=== PATIENT | male | born 1980 | race Two or more races ===

== ENCOUNTER 2016-07-07 23:39 | Emergency (ER) | payer SELFPAY | END 2016-07-07 23:57 | disposition left against medical advice (07) | LOC: ED 23:39 | DX: Z53.21 Procedure and treatment not carried out due to patient leaving prior to being seen by health care provider (principal) ==

== ENCOUNTER 2016-07-08 14:57 | Inpatient (IN) | payer SELFPAY ==
[2016-07-08 16:04] LABS: ALL NEG? NO
[2016-07-08 16:10] LABS: MPV 12.1 fL (7.4-10.4)
[2016-07-08 16:12] LABS: LEUKOCYTES/URINE NEG (NEGATIVE); NITRITE/URINE NEG (NEGATIVE); RBC/URINE 0-2 (0-2); URINE OCCULT BLOOD NEG (NEG/TRACE); WBC/URINE 0-2 (0-2)
[2016-07-08 16:14] LABS: MDMA* NEG (NEGATIVE); METHAMPHETAMINES *POSITIVE* (NEGATIVE); OXYCODONE NEG (NEGATIVE)
[2016-07-08 16:49] LABS: SEG NEUTROPHIL 73 % (45-76); TOTAL CELL COUNT 100
[2016-07-08 17:19] LABS: BLOOD UREA NITROGEN 16 MG/DL (9-20); CALCIUM 8.9 MG/DL (8.4-10.2); CALCULATED OSMOLALITY 262 MOs/Kg (270-290); CHLORIDE 101 mEq/L (98-107); GLUCOSE 118 MG/DL (70-99); SODIUM LEVEL 135 mEq/L (137-146); TOTAL PROTEIN 8.4 G/DL (6.3-8.2)
[2016-07-08] MEDS ORDERED: NS 1,000 ML IV ONE (17:27)
[2016-07-08] MEDS ORDERED: HYDROmorphone 1 MG INJECTION IV ONE (17:27)
[2016-07-08] MEDS ORDERED: DIATRIZOATE MEGLMINE/SODIUM 30 ML BOTTLE PO ONE (17:27)
[2016-07-08] MEDS ORDERED: ONDANSETRON HCL 4 MG/2 ML VIAL IV ONE (17:27)
[2016-07-08] MEDS ORDERED: Pharmacy Review for Metformin - IV Contrast Given SCH ×2 (18:00)
--- NOTE | 2016-07-08 18:18 | EDPRACDOC ---
- General Information Chief Complaint: Abdominal Pain Stated Complaint: ABD PAIN Time Seen by Provider: 07/08/16 17:19 Information Source: Patient, Friend Mode Of Arrival: Car Home Medications: Home Medications Ibuprofen Tablet [Advil] 200 mg PO .ONCE 07/08/16 Allergies/Adverse Reactions: Allergies Allergy/AdvReac Type Severity Reaction Status Date / Time acetaminophen Allergy Rash-Genera Verified 07/08/16 17:41 [From Excedrin Migraine] lized aspirin Allergy Rash-Genera Verified 07/08/16 17:41 [From Excedrin Migraine] lized caffeine Allergy Rash-Genera Verified 07/08/16 17:41 [From Excedrin Migraine] lized - History of Present Illness Onset: 3 DAYS Pain Location: Reports: Epigastric Pain Context: Reports: Spontaneous Pain Severity: Mild Pain Quality: Reports: Aching Pain Radiation: Reports: No Radiation Modifying Factors: improves with: Nothing Associated Signs & Symptoms: Reports: Nausea, Vomiting Oral Intake: Decreased Urinary Output: Normal ED Past Medical History - History Reviewed Yes Nurses notes reviewed and agree except as marked - Patient Medical History Psychological History: Denies: Depression - Social Medical History Smoking Status: Heavy tobacco smoker (5 or more cigarettes/day or daily pipe/ cigar) EDM Review of Systems - Review of Systems ROS Negative Except as Marked: Yes All systems reviewed and were negative except as marked - Physical Exam Constitutional: Alert (Awake), No apparent distress Oriented to: Time, Person, Place Last recorded Vital Signs: Last Vital Signs Temp 98.7 F 07/08/16 20:41 Pulse 78 07/08/16 20:41 Resp 20 07/08/16 20:41 BP 139/72 07/08/16 20:41 Pulse Ox 96 07/08/16 20:41 Oxygen Pulse Oxygen Saturation 96 O2 Device Room Air Oxygen Flow Rate Fraction of Inspired Oxygen ( FIO2) - HEENT Head: Normal ( normocephalic) Eye Exam: Normal (PERRL, EOMI, Sclera white) Oropharynx: Normal (Pharynx:Moist without exudate,Gums-no swelling) ENT EAC: Normal TMJ: Normal Nose: No Symptoms Reported (septum midline) Neck: Normal (FROM, trachea at midline) - Respiratory/Cardiovascular Respiratory: Normal - CTA (BBS clear to auscultation without adventitious sounds ) Cardiovascular: Normal (RRR without murmur, gallop or rub) - GI Auscultation: Normal (NABS) Palpation: Normal (Soft,No rebound or guarding, non distended) Tenderness: Diffuse, RUQ, Epigastric Pérez's Sign: Negative - Musculoskeletal Back: Normal (Non-Tender) Extremities: Normal (Normal tone, Pulses 2+ No cyanosis or edema, FROM) - Integumentary Skin: Normal, Warm, Dry Lymphatics: Normal (no adenopathy) - Neurologic Memory Impaired: Normal Motor Function: Normal (Normal tone, Pulses 2+ No cyanosis or edema, FROM) Cranial Nerve: Normal (CN II-X11 intact sensation, strength 5/5) Cerebellar: Normal Mood Description: Normal Perception: Normal - Results 07/08/16 15:55 07/08/16 17:00 WBC 14.4 xk/uL (3.8-10.8) H 07/08/16 15:55 RBC 5.46 xM/uL (4.70-6.10) 07/08/16 15:55 Hgb 18.0 g/dL (14.0-18.0) 07/08/16 15:55 Hct 50.1 % (42-52) 07/08/16 15:55 MCV 92 fL (80-94) 07/08/16 15:55 MCH 32.9 pg (27-32) H 07/08/16 15:55 MCHC 35.9 g/dl (33-36) 07/08/16 15:55 RDW 13.5 % (11.5-14.5) 07/08/16 15:55 Plt Count 220 xk/uL (130-400) 07/08/16 15:55 MPV 12.1 fL (7.4-10.4) H 07/08/16 15:55 Neut % (Auto) Cancelled 07/08/16 15:55 Lymph % (Auto) Cancelled 07/08/16 15:55 Taylor % (Auto) Cancelled 07/08/16 15:55 Eos % (Auto) Cancelled 07/08/16 15:55 Baso % (Auto) Cancelled 07/08/16 15:55 Absolute Neuts (auto) Cancelled 07/08/16 15:55 Absolute Lymphs (auto) Cancelled 07/08/16 15:55 Seg Neuts % (Manual) 73 % (45-76) 07/08/16 15:55 Band Neutrophils % 5 % (0-5) 07/08/16 15:55 Lymphocytes % (Manual) 16 % (17-44) L 07/08/16 15:55 Monocytes % (Manual) 4 % (0-10) 07/08/16 15:55 Eosinophils % (Manual) 2 % (0-5) 07/08/16 15:55 Absolute Neutrophils 11.23 xk/uL (1.7-8.2) H 07/08/16 15:55 Absolute Lymphocytes 2.30 xk/uL (0.65-4.75) 07/08/16 15:55 Platelet Estimate Norm (NORMAL) 07/08/16 15:55 RBC Morphology 1+ stomatocytes 07/08/16 15:55 Sodium 135 mEq/L (137-146) L 07/08/16 17:00 Potassium 4.7 mEq/L (3.5-5.1) 07/08/16 17:00 Chloride 101 mEq/L (98-107) 07/08/16 17:00 Carbon Dioxide 19 mMOL/L (22-33) L 07/08/16 17:00 Anion Gap 20 mEq/L (8-16) H 07/08/16 17:00 BUN 16 MG/DL (9-20) 07/08/16 17:00 Creatinine 1.10 MG/DL (0.66-1.25) 07/08/16 17:00 Estimated GFR (MDRD) > 60 mL/min (>=60) 07/08/16 17:00 Glucose 118 MG/DL (70-99) H 07/08/16 17:00 Calculated Osmolality 262 MOs/Kg (270-290) L 07/08/16 17:00 Calcium 8.9 MG/DL (8.4-10.2) 07/08/16 17:00 Total Bilirubin 3.6 MG/DL (0.2-1.3) H 07/08/16 17:00 AST 211 IU/L (17-59) H 07/08/16 17:00 ALT 118 IU/L (21-72) H 07/08/16 17:00 Alkaline Phosphatase 117 IU/L (38-126) 07/08/16 17:00 Total Protein 8.4 G/DL (6.3-8.2) H 07/08/16 17:00 Albumin 4.2 G/DL (3.5-5.0) 07/08/16 17:00 Lipase 428 U/L (23-300) H 07/08/16 17:00 Urine Color Yellow 07/08/16 15:56 Urine Clarity Clear 07/08/16 15:56 Urine pH 6.0 (5.0-8.0) 07/08/16 15:56 Ur Specific [place] 1.030 (1.003-1.035) 07/08/16 15:56 Urine Protein 1+ (NEG/TRACE) H 07/08/16 15:56 Urine Glucose (UA) Neg (NEGATIVE) 07/08/16 15:56 Urine Ketones Neg (NEGATIVE) 07/08/16 15:56 Urine Occult Blood Neg (NEG/TRACE) 07/08/16 15:56 Urine Nitrite Neg (NEGATIVE) 07/08/16 15:56 Urine Bilirubin Neg (NEGATIVE) 07/08/16 15:56 Urine Urobilinogen <2.0 MG/DL (0-1) 07/08/16 15:56 Ur Leukocyte Esterase Neg (NEGATIVE) 07/08/16 15:56 Urine RBC 0-2 (0-2) 07/08/16 15:56 Urine WBC 0-2 (0-2) 07/08/16 15:56 Ur Epithelial Cells Occ 07/08/16 15:56 Urine Bacteria Few (NEG/FEW) 07/08/16 15:56 Urine Mucus Large (NEG/OCC) 07/08/16 15:56 Urine Opiates Screen *positive* (NEGATIVE) H 07/08/16 15:56 Ur Oxycodone Screen Neg (NEGATIVE) 07/08/16 15:56 Urine Methadone Screen Neg (NEGATIVE) 07/08/16 15:56 Ur Barbiturates Screen Neg (NEGATIVE) 07/08/16 15:56 Ur Tricyclics Screen Neg (NEGATIVE) 07/08/16 15:56 Ur Phencyclidine Scrn Neg (NEGATIVE) 07/08/16 15:56 Ur Amphetamines Screen Neg (NEGATIVE) 07/08/16 15:56 U Methamphetamines Scrn *positive* (NEGATIVE) H 07/08/16 15:56 Urine MDMA Screen Neg (NEGATIVE) 07/08/16 15:56 U Benzodiazepines Scrn Neg (NEGATIVE) 07/08/16 15:56 Urine Cocaine Screen *positive* (NEGATIVE) H 07/08/16 15:56 Ur THC Screen Neg (NEGATIVE) 07/08/16 15:56 Plasma/Serum Ethyl Alc 0.01 % (<0.01) H 07/08/16 15:55 Lab Results 07/08/16 07/08/16 07/08/16 17:00 15:56 15:56 WBC RBC Hgb Hct MCV MCH MCHC RDW Plt Count MPV Neut % (Auto) Lymph % (Auto) Taylor % (Auto) Eos % (Auto) Baso % (Auto) Absolute Neuts (auto) Absolute Lymphs (auto) Seg Neuts % (Manual) Band Neutrophils % Lymphocytes % (Manual) Monocytes % (Manual) Eosinophils % (Manual) Absolute Neutrophils Absolute Lymphocytes Platelet Estimate RBC Morphology Sodium 135 L Potassium 4.7 Chloride 101 Carbon Dioxide 19 L Anion Gap 20 H BUN 16 Creatinine 1.10 Estimated GFR (MDRD) > 60 Glucose 118 H Calculated Osmolality 262 L Calcium 8.9 Total Bilirubin 3.6 H AST 211 H ALT 118 H Alkaline Phosphatase 117 Total Protein 8.4 H Albumin 4.2 Lipase 428 H Urine Color Yellow Urine Clarity Clear Urine pH 6.0 Ur Specific [place] 1.030 Urine Protein 1+ H Urine Glucose (UA) Neg Urine Ketones Neg Urine Occult Blood Neg Urine Nitrite Neg Urine Bilirubin Neg Urine Urobilinogen <2.0 Ur Leukocyte Esterase Neg Urine RBC 0-2 Urine WBC 0-2 Ur Epithelial Cells Occ Urine Bacteria Few Urine Mucus Large Urine Opiates Screen *positive* H Ur Oxycodone Screen Neg Urine Methadone Screen Neg Ur Barbiturates Screen Neg Ur Tricyclics Screen Neg Ur Phencyclidine Scrn Neg Ur Amphetamines Screen Neg U Methamphetamines Scrn *positive* H Urine MDMA Screen Neg U Benzodiazepines Scrn Neg Urine Cocaine Screen *positive* H Ur THC Screen Neg Plasma/Serum Ethyl Alc 07/08/16 07/08/16 15:55 15:55 WBC 14.4 H RBC 5.46 Hgb 18.0 Hct 50.1 MCV 92 MCH 32.9 H MCHC 35.9 RDW 13.5 Plt Count 220 MPV 12.1 H Neut % (Auto) Cancelled Lymph % (Auto) Cancelled Taylor % (Auto) Cancelled Eos % (Auto) Cancelled Baso % (Auto) Cancelled Absolute Neuts (auto) Cancelled Absolute Lymphs (auto) Cancelled Seg Neuts % (Manual) 73 Band Neutrophils % 5 Lymphocytes % (Manual) 16 L Monocytes % (Manual) 4 Eosinophils % (Manual) 2 Absolute Neutrophils 11.23 H Absolute Lymphocytes 2.30 Platelet Estimate Norm RBC Morphology 1+ stomatocytes Sodium Potassium Chloride Carbon Dioxide Anion Gap BUN Creatinine Estimated GFR (MDRD) Glucose Calculated Osmolality Calcium Total Bilirubin AST ALT Alkaline Phosphatase Total Protein Albumin Lipase Urine Color Urine Clarity Urine pH Ur Specific [place] Urine Protein Urine Glucose (UA) Urine Ketones Urine Occult Blood Urine Nitrite Urine Bilirubin Urine Urobilinogen Ur Leukocyte Esterase Urine RBC Urine WBC Ur Epithelial Cells Urine Bacteria Urine Mucus Urine Opiates Screen Ur Oxycodone Screen Urine Methadone Screen Ur Barbiturates Screen Ur Tricyclics Screen Ur Phencyclidine Scrn Ur Amphetamines Screen U Methamphetamines Scrn Urine MDMA Screen U Benzodiazepines Scrn Urine Cocaine Screen Ur THC Screen Plasma/Serum Ethyl Alc 0.01 H - Additional Information UNABLE TO OBTAIN GB US AT [facility]. CONTACTED HOSPITALIST TO ADMIT - Departure Yes I personally saw and evaluated the patient. Disposition: Admit IP To This Hospital Condition: Good Final Diagnosis: Abdominal pain, DUODENITIS, ELEVATED LFT Decision to Admit Time: 20:49 (IKRAM) Decision to admit date: 07/08/16 Decision to admit: from ED
--- NOTE | 2016-07-08 20:41 | DIRPT ---
CLINICAL DATA: Epigastric pain. Nausea and vomiting for 4 days. EXAM: CT ABDOMEN AND PELVIS WITH CONTRAST TECHNIQUE: Multidetector CT imaging of the abdomen and pelvis was performed using the standard protocol following bolus administration of intravenous contrast. CONTRAST: 100 cc Isovue 370 COMPARISON: None. FINDINGS: Lower chest: Trace right pleural fluid Hepatobiliary: Diffuse hepatic steatosis. No gallbladder wall thickening observed. Pancreas: No parenchymal abnormality of the pancreas is identified. Spleen: Unremarkable Adrenals/Urinary Tract: Partially duplicated right renal collecting system. Stomach/Bowel: There is apparent wall thickening and abnormal hypointensity in the anterior wall of the transverse duodenum with extensive fluid signal tracking around the transverse duodenum in the retroperitoneum. This edema extends up to the fourth part of the duodenum and also tracks down adjacent to the right inferior hepatic margin and in the right paracolic gutter. There is some wall thickening at the hepatic flexure the colon, along with some scattered diverticula, raising that as a possible alternative source of the fluid, but the duodenum seems to be the epicenter. Part of the edema extends below the pancreatic head and accordingly pancreatitis might be a possibility, but the pancreas is not observably the epicenter. There is some scattered air-fluid levels in nondilated left-sided loops of small bowel. The appendix is normal. Terminal ileum unremarkable. Vascular/Lymphatic: Unremarkable Reproductive: Unremarkable Other: No supplemental non-categorized findings. Musculoskeletal: Several small benign bone islands in the pelvis and proximal femurs. IMPRESSION: 1. Extensive upper abdominal edema appears to have its epicenter around the transverse duodenum, which demonstrates some abnormal hypoenhancement in its anterior wall along with some generalized wall thickening. This abnormal confluent fluid density tracks down along the retroperitoneum and along the right paracolic gutter. There are scattered diverticula of the ascending colon making ascending colon diverticulosis as a possible alternative to duodenitis/duodenal ulcer, but the epicenter of the process appears to be more around the duodenum than the colon. Possibilities include Crohn's disease affecting the duodenum, or an unusual manifestation of duodenitis or duodenal injury. 2. Hepatic steatosis. 3. Part of the fluid tracks adjacent to the pancreas. Although I doubt that pancreatitis is the cause, it may be prudent to check a lipase level. Electronically Signed By: Oscar Larson M.D. On: 07/08/2016 20:38
[2016-07-08] MEDS ORDERED: PANTOPRAZOLE 40 MG VIAL IV ONE (21:28)
[2016-07-08] MEDS ORDERED: ONDANSETRON HCL 4 MG/2 ML VIAL IV PRN (21:29)
[2016-07-08] MEDS ORDERED: LORAZEPAM 2 MG/ML VIAL IV PRN ×3 (21:32)
[2016-07-08] MEDS ORDERED: LORAZEPAM 1 MG TAB PO PRN ×3 (21:32)
--- NOTE | 2016-07-08 21:36 | HISTPHYS ---
- Chief Complaint Abdominal pain - History of Present Illness This is a 36-year-old [place]an-speaking male who is being admitted to the hospital due to pancreatitis and GI bleed. The patient tells me that he started to develop abdominal pain about a week ago, and vomited coffee-grounds 4 days ago. Since that day, he has had continued abdominal pain which is epigastric but does not radiate. It is dull and achy, he has also had associated diarrhea. When he 1st threw up, he had some coffee-grounds, but since then has just been bilious without any evidence of coffee-grounds or blood. He has also been having diarrhea on a daily basis, says that 3 days ago he saw some blood in the stool, but since then it has just been dark in color. With no bright red blood seen. He admits to heavy drinking, his last drink was 2 days ago. No since it fevers, or back pain. No rashes on the skin. No chills. He had similar abdominal pain a couple months ago, but resolved after about 24 hours on its own without any intervention. He has never had any GI bleeding or blood in the stool or vomitus before, he has never had EGD or colonoscopy. - Medical History Psychological History: Denies: Depression - Medictions/Allergies Allergies acetaminophen [From Excedrin Migraine] Allergy (Verified 07/08/16 17:41) Rash-Generalized aspirin [From Excedrin Migraine] Allergy (Verified 07/08/16 17:41) Rash-Generalized caffeine [From Excedrin Migraine] Allergy (Verified 07/08/16 17:41) Rash-Generalized Home Medications Ibuprofen Tablet [Advil] 200 mg PO .ONCE 07/08/16 - Social History Smoking Status: Heavy tobacco smoker (5 or more cigarettes/day or daily pipe/ cigar) - Review of Systems Yes All systems reviewed and were negative except as marked (And as mentioned in the history of present illness above.) - Physical Exam Vital Signs: Initial Vitals Temperature 99.0 F 07/08/16 15:49 Pulse Rate 72 07/08/16 15:49 Respiratory Rate 18 07/08/16 15:49 Blood Pressure 143/84 07/08/16 15:49 Pulse Oxygen Saturation 97 07/08/16 15:49 Constitutional: Distress Oriented to: Time, Person, Place Exam: Healthy-appearing gentleman appearing stated age writhing in pain in the emergency department. - HEENT Head: Normal (normocephalic,atraumatic, trachea midline) Eye: Normal (EOMI, Sclera white) Oropharynx: Normal (moist) Nose: No Symptoms Reported (without discharge or bleeding) Respiratory: Normal - CTA (Clear to auscultation bilaterally, no wheezing,rales or rhonchi. No use of accessory muscles) Cardiovascular: Normal (RRR, no murmurs, rubs or gallops) - GI Palpation: Normal (soft, non distended and nontender) GI Addtional Findings: Tender to palpation. No abdominal ascites, fluid wave. Normal bowel tones. - Musculoskeletal Extremities: Normal (normal tone, no cyanosis or edema) - Focused CV Perfusion Exam Vital Signs: Last Vital Signs Temp 98.7 F 07/08/16 20:41 Pulse 75 07/08/16 21:13 Resp 20 07/08/16 21:13 BP 133/75 07/08/16 21:13 Pulse Ox 97 07/08/16 21:13 - Lab Results Laboratory Tests 07/08/16 07/08/16 15:55 17:00 WBC 14.4 H Hgb 18.0 Plt Count 220 Sodium 135 L Potassium 4.7 BUN 16 Creatinine 1.10 - Diagnostic Findings CT of the abdomen and pelvis: 1. Extensive upper abdominal edema appears to have its epicenter around the transverse duodenum, which demonstrates some abnormal hypoenhancement in its anterior wall along with some generalized wall thickening. This abnormal confluent fluid density tracks down along the retroperitoneum and along the right paracolic gutter. There are scattered diverticula of the ascending colon making ascending colon diverticulosis as a possible alternative to duodenitis/duodenal ulcer, but the epicenter of the process appears to be more around the duodenum than the colon. Possibilities include Crohn's disease affecting the duodenum, or an unusual manifestation of duodenitis or duodenal injury. 2. Hepatic steatosis. 3. Part of the fluid tracks adjacent to the pancreas. Although I doubt that pancreatitis is the cause, it may be prudent to check a lipase level. - Assessment (1) Drug abuse F19.10 - OTHER PSYCHOACTIVE SUBSTANCE ABUSE, UNCOMPLICATED Acute Noted opiates, methamphetamines cocaine on urine drug screen tonight. (2) ETOH abuse F10.10 - ALCOHOL ABUSE, UNCOMPLICATED Acute Patient and his family admits that he is a daily heavy drinker. I strongly advised to quit alcohol, he says that he will quit completely. Given his history, the fact that his last drink was 2 nights ago, he is certainly at high risk for alcohol withdrawal. As such , I have ordered CIWA checks and Ativan per the detox protocol. Also been antibiotic has been ordered. (3) Pancreatitis K85.90 - ACUTE PANCREATITIS WITHOUT NECROSIS OR INFECTION, UNSP Acute Patient is pancreatitis, likely related to heavy alcohol abuse. Keep strictly NPO, copious IV fluids. Control with IV morphine p.r.n.. (4) Duodenitis K29.80 - DUODENITIS WITHOUT BLEEDING Acute Significant duodenal inflammation and some associated fluid seen on CT scan of the abdomen tonight. Possibly infectious duodenitis or related to duodenal ulceration. My suspicion is for duodenal ulceration given his history of dark tarry stools, as well as heavy drinking. Infectious duodenitis is a possibility, as such will start on empiric Levaquin ill fascial, consider GI consultation in the morning for possible endoscopy once he is stabilized. He is currently not anemic, but will keep an eye on the blood counts on a daily basis, or check blood count stat in case of any further bright red blood in emesis or stool. (5) GIB (gastrointestinal bleeding) K92.2 - GASTROINTESTINAL HEMORRHAGE, UNSPECIFIED Acute Currently not anemic , but he does give a history of recent dark tarry stools and coffee-ground emesis, with some bright red blood seen at earlier on as well. As such, will start PPI therapy IV twice daily. Consider GI consultation for possible endoscopy. He has never had EGD or colonoscopy in the past. (6) Abdominal pain R10.9 - UNSPECIFIED ABDOMINAL PAIN Acute - Plan 49
[2016-07-08] MEDS ORDERED: PANTOPRAZOLE 40 MG VIAL IV SCH (22:00)
[2016-07-08] MEDS ORDERED: LORAZEPAM 1 MG TAB PO SCH ×2 (22:00)
[2016-07-08] MEDS ORDERED: Alcohol Withdrawal Scale Orders XX SCH (22:00)
[2016-07-08] MEDS: FOLIC ACID 1 MG, THIAMINE 100 MG, VITAMINS, MULTIPLE 10 ML in NS 1,000 ML IV SCH ×4 (22:18)
[2016-07-08] MEDS: MORPHINE 2 MG/ML INJECTION IV PRN (22:18)
[2016-07-08] MEDS: NS 1,000 ML IV SCH (22:29)
[2016-07-08] MEDS: Metronidazole 500 mg/100 ml 500 MG/100 ML RTU IV SCH (23:42)
[2016-07-09] MEDS: MORPHINE 2 MG/ML INJECTION IV PRN ×4 (01:39→17:34)
[2016-07-09] MEDS: Levofloxacin 500 mg/100 ml D5W 500 MG/100 ML RTU IV SCH (01:40)
[2016-07-09] MEDS: LORAZEPAM 2 MG/ML VIAL IV SCH ×3 (06:18→17:30)
[2016-07-09 06:21] LABS: MPV 10.6 fL (7.4-10.4)
[2016-07-09] MEDS: Metronidazole 500 mg/100 ml 500 MG/100 ML RTU IV SCH ×3 (06:21→21:10)
[2016-07-09 06:42] LABS: BLOOD UREA NITROGEN 11 MG/DL (9-20); CALCIUM 8.4 MG/DL (8.4-10.2); CALCULATED OSMOLALITY 261 MOs/Kg (270-290); CHLORIDE 103 mEq/L (98-107); GLUCOSE 97 MG/DL (70-99); SODIUM LEVEL 136 mEq/L (137-146); TOTAL PROTEIN 6.7 G/DL (6.3-8.2)
[2016-07-09] MEDS: NS 1,000 ML IV SCH ×3 (09:27→21:10)
[2016-07-09] MEDS: PANTOPRAZOLE 40 MG VIAL IV SCH ×2 (11:06→21:11)
[2016-07-09] MEDS ORDERED: Vaccine Screening Complete SCH (13:00)
--- NOTE | 2016-07-09 13:46 | GENMEDPROG ---
Chief Complaint: pancreatitis, ETOH abuse, GI bleed, melena, N&V, epigastric abdominal pain Subjective Note: Drinks 8-12 beers a day, more on the week-end; smokes 1ppd cigarettes also. Has had dyspepsia for several weeks, Really bad since [place]. Notes Reviewed: Yes Events from last night noted and discussed with Clinical Staff Current Medication List: Reviewed Currently: Reports: Tobacco Use/Hx, Alcohol Hx, Reflux Sx, Abdominal Pain. Denies: Diarrhea, Nausea and Vomiting - Physical Examination Vital Signs and I&O: Last Vital Signs Temp 99.6 F 07/09/16 10:45 Pulse 96 07/09/16 10:45 Resp 16 07/09/16 10:45 BP 129/74 07/09/16 10:45 Pulse Ox 96 07/09/16 10:45 Oxygen Pulse Oxygen Saturation 96 O2 Device Room Air Oxygen Flow Rate Fraction of Inspired Oxygen ( FIO2) Intake & Output 07/06/16 07/07/16 07/08/16 07/09/16 23:59 23:59 23:59 23:59 Intake Total 1000 797 Output Total 725 Balance 1000 72 Patient's weight 83.489 kg 83.716 kg General: Alert, Oriented x3, Mild distress HEENT: PERRLA, EOMI, Anicteric Sclera, Mucous membr. moist/pink Neck: Non-tender, Full range of motion, Normal Trachea alignment, Normal inspection, No Masses palpable, No Thyromegaly palpable. negative: JVD Lymphatics: Normal Respiratory: Normal - CTA (Clear to auscultation bilaterally, no wheezing,rales or rhonchi. No use of accessory muscles) Cardiovascular: Regular rate and rhythm, Normal S1, Normal S2 GI: Soft, No masses, Tenderness (mild direct tenderness over epigastric area), Guarding. negative: Normal bowel sounds (dminished) Extremities/Musculoskeletal: Normal pulses, FROM. negative: Edema Skin: Warm,Dry and Intact, No rashes, No breakdown Neurological: Normal speech, Strength at 5/5 X4 ext, Normal tone, Cranial nerves 3-12 NL Psych/Mental Status: Appropriate, Normal Affect, Cooperative Lab/DI/Studies Reviewed: Laboratory Tests 07/09/16 07/09/16 05:35 05:35 WBC 16.5 H Hgb 15.9 D Hct 45.3 MCV 91 MCH 31.7 Plt Count 123 L Sodium 136 L Potassium 3.7 Chloride 103 Carbon Dioxide 21 L Anion Gap 16 BUN 11 Creatinine 0.90 Estimated GFR (MDRD) > 60 Glucose 97 Calculated Osmolality 261 L Calcium 8.4 Corrected Calcium 9.0 Total Bilirubin 2.3 H AST 99 H ALT 97 H Alkaline Phosphatase 99 Total Protein 6.7 Albumin 3.4 L - Assessment (1) Pancreatitis Acute K85.90 - ACUTE PANCREATITIS WITHOUT NECROSIS OR INFECTION, UNSP Qualifiers: Chronicity: acute Pancreatitis type: alcohol induced Acute pancreatitis complication: no infection or necrosis Qualified Code(s): K85.20 - Alcohol induced acute pancreatitis without necrosis or infection Comment/Plan: Patient has pancreatitis, related to heavy alcohol abuse. Keep strictly NPO, copious IV fluids. Control with IV morphine p.r.n.. (2) ETOH abuse Acute F10.10 - ALCOHOL ABUSE, UNCOMPLICATED Comment/Plan: Patient and his family admits that he is a daily heavy drinker. I strongly advised to quit alcohol, he says that he will quit completely. Given his history, the fact that his last drink was 3 nights ago, he is certainly at high risk for alcohol withdrawal. As such, I have ordered CIWA checks and Ativan per the detox protocol. Also an antibiotic has been ordered. (3) Abdominal pain Acute R10.9 - UNSPECIFIED ABDOMINAL PAIN Comment/Plan: Related to his pancreatitis and possibly some alcoholic gastritis. Patient admits to having blood in stools for 2-3 weeks. (4) GIB (gastrointestinal bleeding) Acute K92.2 - GASTROINTESTINAL HEMORRHAGE, UNSPECIFIED Qualifiers: GI bleed type/associated pathology: unspecified gastrointestinal hemorrhage type Qualified Code(s): K92.2 - Gastrointestinal hemorrhage, unspecified Comment/Plan: Currently not anemic, but he does give a history of recent dark tarry stools and coffee-ground emesis, with some bright red blood reported earlier on as well. As such, will start PPI therapy IV twice daily. Consider GI consultation for possible endoscopy. He has never had EGD or colonoscopy in the past. (5) Drug abuse Acute F19.10 - OTHER PSYCHOACTIVE SUBSTANCE ABUSE, UNCOMPLICATED Comment/ Plan: Noted opiates, methamphetamines, & cocaine on urine drug screen on admission.
[2016-07-09] MEDS: FOLIC ACID 1 MG, THIAMINE 100 MG, VITAMINS, MULTIPLE 10 ML in NS 1,000 ML IV SCH ×4 (21:10)
[2016-07-10] MEDS ORDERED: LORAZEPAM 1 MG TAB PO SCH
[2016-07-10] MEDS: LORAZEPAM 2 MG/ML VIAL IV SCH ×4 (01:20→17:15)
[2016-07-10] MEDS: Levofloxacin 500 mg/100 ml D5W 500 MG/100 ML RTU IV SCH (01:20)
[2016-07-10] MEDS: MORPHINE 2 MG/ML INJECTION IV PRN ×4 (04:33→22:58)
[2016-07-10] MEDS: Metronidazole 500 mg/100 ml 500 MG/100 ML RTU IV SCH ×3 (06:00→22:38)
[2016-07-10 07:13] LABS: MPV 10.8 fL (7.4-10.4)
[2016-07-10 07:46] LABS: BLOOD UREA NITROGEN 6 MG/DL (9-20); CALCIUM 8.2 MG/DL (8.4-10.2); CALCULATED OSMOLALITY 259 MOs/Kg (270-290); CHLORIDE 104 mEq/L (98-107); GLUCOSE 74 MG/DL (70-99); SODIUM LEVEL 136 mEq/L (137-146)
[2016-07-10] MEDS: NS 1,000 ML IV SCH ×3 (08:00→22:39)
[2016-07-10] MEDS: PANTOPRAZOLE 40 MG VIAL IV SCH ×2 (09:51→22:40)
--- NOTE | 2016-07-10 15:36 | PCM.CONSGI ---
Consult Date: 07/10/16 Consult Requesting Physician: Monica Sol Consult Reason: Abdominal Pain - History of Present Illness 36-year-old very pleasant male who has been drinking alcohol and using cocaine over the last 4-5 years had sudden onset of abdominal pain on Reji. This got progressively worse. He did have some nausea and vomiting. According to the patient he also had hematemesis with coffee-ground emesis. His abdominal pain got progressively worse. He came into the emergency room where a CT scan of the abdomen and pelvis was performed which showed significant inflammation surrounding the duodenum. There was some inflammation around the pancreatic head as well. Initially her lipase was mildly elevated. His lipase is currently normal. He is allergic to aspirin. According to the history and physical-he has been using ibuprofen. When I asked him directly, he did tell me that he has not used any ibuprofen recently. He did have fever and chills over the last 24 hours. His white cell count has been progressively increasing. - Past Medical History Cardiac History: Reports: No Significant History Respiratory History: Reports: No Significant History Psychological History: Denies: Depression - Surgical History Past Surgical History: Reports: No Significant History - Allergies Allergies acetaminophen [From Excedrin Migraine] Allergy (Verified 07/08/16 17:41) Rash-Generalized aspirin [From Excedrin Migraine] Allergy (Verified 07/08/16 17:41) Rash-Generalized caffeine [From Excedrin Migraine] Allergy (Verified 07/08/16 17:41) Rash-Generalized - Medications Home Medications Ibuprofen Tablet [Advil] 200 mg PO .ONCE 07/08/16 - Social History Smoking Status: Heavy tobacco smoker (5 or more cigarettes/day or daily pipe/ cigar) Social History: Reports: Alcohol Use (12-24 beers per day), Cocaine Use (Every Friday over the last 4-5 years). Denies: Marijuana Use - Review of Systems Constitutional: Chills, Fever, Other (No night sweats.). negative: Weight loss (Recent) Mouth: negative: Pain Cardiovascular: negative: Chest Pain, Orthopnea, PND Gastrointestinal: Other (No jaundice, dark urine or pale stools.) Genitourinary: Other (Denies polyuria.). negative: Dysuria Neurological: Other (Denies loss of consciousness.). negative: Seizure Allergic/Immunologic: negative: Hives, Itching Hematologic: negative: Easy Bruising - Exam Vital Signs: Temperature: 100 F (07/10/16 13:53) HR: 104 (07/10/16 13:53) RR: 20 (07/10/16 13:53) BP: 106/59 (07/10/16 13:53) Pulse Ox: 96 (07/10/16 13:53) General: Alert, Oriented x3, Cooperative, No acute distress HEENT: Normal, Other (No Jaundice). negative: Pallor Cardiovascular: Normal S1, Normal S2, Other (No S3 or S4.). negative: No murmurs Gastrointestinal: Soft, Bowel Sounds (normal), Tender, Guarding, Other (No ascites. Bowel sounds are absent). negative: Rigid, Hepatosplenomegaly Extremities: Normal pulses. negative: Swelling, Edema Skin: Warm,Dry and Intact Neurological: Normal speech, Other (No focal neurologic deficits.) Psych/Mental Status: Normal Affect, Cooperative - Labs Result Diagrams: 07/10/16 06:45 07/10/16 06:45 Laboratory Tests 07/08/16 07/08/16 07/08/16 15:55 15:55 15:56 WBC 14.4 H Hgb 18.0 Hct MCV 92 Plt Count 220 Sodium Total Bilirubin AST ALT Alkaline Phosphatase Total Protein Lipase Urine Opiates Screen *positive* H U Methamphetamines Scrn *positive* H Urine Cocaine Screen *positive* H Plasma/Serum Ethyl Alc 0.01 H 07/08/16 07/09/16 07/10/16 17:00 05:35 06:45 WBC Hgb Hct MCV Plt Count Sodium 135 L 136 L 136 L Total Bilirubin 3.6 H 2.3 H AST 211 H 99 H ALT 118 H 97 H Alkaline Phosphatase 117 99 Total Protein 8.4 H 6.7 Lipase 428 H 110 Urine Opiates Screen U Methamphetamines Scrn Urine Cocaine Screen Plasma/Serum Ethyl Alc 07/10/16 06:45 WBC 17.8 H Hgb 14.6 Hct 42.5 MCV 91 Plt Count 116 L Sodium Total Bilirubin AST ALT Alkaline Phosphatase Total Protein Lipase Urine Opiates Screen U Methamphetamines Scrn Urine Cocaine Screen Plasma/Serum Ethyl Alc Exam(s): [id number] CT/CT ABD-PELV W/IV CM CLINICAL DATA: Epigastric pain. Nausea and vomiting for 4 days. EXAM: CT ABDOMEN AND PELVIS WITH CONTRAST TECHNIQUE: Multidetector CT imaging of the abdomen and pelvis was performed using the standard protocol following bolus administration of intravenous contrast. CONTRAST: 100 cc Isovue 370 COMPARISON: None. FINDINGS: Lower chest: Trace right pleural fluid Hepatobiliary: Diffuse hepatic steatosis. No gallbladder wall thickening observed. Pancreas: No parenchymal abnormality of the pancreas is identified. Spleen: Unremarkable Adrenals/Urinary Tract: Partially duplicated right renal collecting system. Stomach/Bowel: There is apparent wall thickening and abnormal hypointensity in the anterior wall of the transverse duodenum with extensive fluid signal tracking around the transverse duodenum in the retroperitoneum. This edema extends up to the fourth part of the duodenum and also tracks down adjacent to the right inferior hepatic margin and in the right paracolic gutter. There is some wall thickening at the hepatic flexure the colon, along with some scattered diverticula, raising that as a possible alternative source of the fluid, but the duodenum seems to be the epicenter. Part of the edema extends below the pancreatic head and accordingly pancreatitis might be a possibility, but the pancreas is not observably the epicenter. There is some scattered air-fluid levels in nondilated left-sided loops of small bowel. The appendix is normal. Terminal ileum unremarkable. Vascular/Lymphatic: Unremarkable Reproductive: Unremarkable Other: No supplemental non-categorized findings. Musculoskeletal: Several small benign bone islands in the pelvis and proximal femurs. IMPRESSION: 1. Extensive upper abdominal edema appears to have its epicenter around the transverse duodenum, which demonstrates some abnormal hypoenhancement in its anterior wall along with some generalized wall thickening. This abnormal confluent fluid density tracks down along the retroperitoneum and along the right paracolic gutter. There are scattered diverticula of the ascending colon making ascending colon diverticulosis as a possible alternative to duodenitis/duodenal ulcer, but the epicenter of the process appears to be more around the duodenum than the colon. Possibilities include Crohn's disease affecting the duodenum, or an unusual manifestation of duodenitis or duodenal injury. 2. Hepatic steatosis. 3. Part of the fluid tracks adjacent to the pancreas. Although I doubt that pancreatitis is the cause, it may be prudent to check a lipase level. - Assessment and Plan (1) Abdominal pain Acute R10.9 - UNSPECIFIED ABDOMINAL PAIN Comment: In a patient with history of cocaine, alcohol use. Initially it was thought to be pancreatitis. However, his lipase was within normal limits currently. He could have perforated duodenal ulcer in the 2nd portion or 3rd portion of duodenum. There is no free air. (2) Drug abuse Acute F19.10 - OTHER PSYCHOACTIVE SUBSTANCE ABUSE, UNCOMPLICATED (3) Duodenitis Acute K29.80 - DUODENITIS WITHOUT BLEEDING (4) ETOH abuse Acute F10.10 - ALCOHOL ABUSE, UNCOMPLICATED (5) Pancreatitis Acute K85.90 - ACUTE PANCREATITIS WITHOUT NECROSIS OR INFECTION, UNSP acute alcohol induced no infection or necrosis K85.20 - Alcohol induced acute pancreatitis without necrosis or infection Recommendations: 1. IV Protonix as a continuous drip. 2. Agree with broad-spectrum antibiotics 3. Recheck x-ray KUB in a.m. 4. Aggressive IV hydration, pain control. 5. I believe it will be worthwhile to get surgical consultation as well. 6. He has assured me that he will stop drinking alcohol and stop using cocaine.
--- NOTE | 2016-07-10 19:47 | GENMEDPROG ---
Chief Complaint: ABD PAIN, GI BLEED, ETOH ABUSE, PANCREATITIS Subjective Note: still having a lot of pain and nausea, scant bowel sounds Notes Reviewed: Yes Events from last night noted and discussed with Clinical Staff Current Medication List: Reviewed Currently: Reports: Tobacco Use/Hx, Alcohol Hx, Reflux Sx, Abdominal Pain. Denies: Diarrhea, Nausea and Vomiting - Physical Examination Vital Signs and I&O: Last Vital Signs Temp 99.5 F 07/10/16 16:04 Pulse 100 07/10/16 16:04 Resp 20 07/10/16 16:04 BP 134/66 07/10/16 16:04 Pulse Ox 97 07/10/16 16:04 Oxygen Pulse Oxygen Saturation 97 O2 Device Room Air Oxygen Flow Rate Fraction of Inspired Oxygen ( FIO2) Intake & Output 07/07/16 07/08/16 07/09/16 07/10/16 23:59 23:59 23:59 23:59 Intake Total 1000 2908 3097 Output Total 1375 2000 Balance 1000 1533 1097 Patient's weight 83.489 kg 83.716 kg 82.696 kg General: Alert, Oriented x3, Cooperative, No acute distress HEENT: Normal, PERRLA, EOMI, Anicteric Sclera, Pallor Neck: Full range of motion, Normal Trachea alignment, Normal inspection, No Masses palpable Lymphatics: Normal Respiratory: Normal - CTA Cardiovascular: Regular rate and rhythm, Normal S1, Normal S2 GI: Tenderness (diffuse), Rebound, Guarding. negative: Normal bowel sounds ( but still presentdiminished,) Extremities/Musculoskeletal: Normal pulses, FROM. negative: Swelling, Edema Skin: Warm,Dry and Intact Neurological: Normal speech, Strength at 5/5 X4 ext, Normal tone, Cranial nerves 3-12 NL Psych/Mental Status: Normal Affect, Cooperative Lab/DI/Studies Reviewed: Laboratory Tests 07/10/16 07/10/16 06:45 06:45 WBC 17.8 H Hgb 14.6 Hct 42.5 Plt Count 116 L Sodium 136 L Potassium 3.6 Chloride 104 Carbon Dioxide 21 L Anion Gap 15 BUN 6 L Creatinine 0.90 Estimated GFR (MDRD) > 60 Glucose 74 Calculated Osmolality 259 L Calcium 8.2 L Laboratory Tests 07/10/16 06:45 Lipase 110 - Assessment (1) Pancreatitis Acute K85.90 - ACUTE PANCREATITIS WITHOUT NECROSIS OR INFECTION, UNSP Qualifiers: Chronicity: acute Pancreatitis type: alcohol induced Acute pancreatitis complication: no infection or necrosis Qualified Code(s): K85.20 - Alcohol induced acute pancreatitis without necrosis or infection Comment/Plan: Pancreatitis resolving, but abdominal pain persists: probably gastritis related to heavy alcohol abuse. Keep strictly NPO, copious IV fluids. Control with IV morphine p.r.n.. (2) ETOH abuse Acute F10.10 - ALCOHOL ABUSE, UNCOMPLICATED Comment/Plan: Patient and his family admits that he is a daily heavy drinker. I strongly advised to quit alcohol, he says that he will quit completely. Given his history, the fact that his last drink was 3 nights ago, he is certainly at high risk for alcohol withdrawal. As such, I have ordered CIWA checks and Ativan per the detox protocol. Also an antibiotic has been ordered. (3) Abdominal pain Acute R10.9 - UNSPECIFIED ABDOMINAL PAIN Comment/Plan: possibly some alcoholic gastritis. Patient admits to having blood in stools for 2-3 weeks. Reports vomiting blood over the past weekend, up to 15 times. (4) GIB (gastrointestinal bleeding) Acute K92.2 - GASTROINTESTINAL HEMORRHAGE, UNSPECIFIED Qualifiers: GI bleed type/associated pathology: unspecified gastrointestinal hemorrhage type Qualified Code(s): K92.2 - Gastrointestinal hemorrhage, unspecified Comment/Plan: Currently not anemic, but he does give a history of recent dark tarry stools and coffee-ground emesis, with some bright red blood reported earlier on as well. As such, will start PPI therapy IV twice daily. GI consultation w/ Dr. Alanis for possible endoscopy. He has never had EGD or colonoscopy in the past. Also consider surgical evaluation due to guarding and possible perforated duodenal ulcer. (5) Drug abuse Acute F19.10 - OTHER PSYCHOACTIVE SUBSTANCE ABUSE, UNCOMPLICATED Comment/ Plan: Noted opiates, methamphetamines, & cocaine on urine drug screen on admission. Case Care Discussed with: Patient, Consultants, Nursing Staff Education/Counseling Given To: Patient, Family Member Education/Counseling Given Regarding: Diagnosis, Treatment, Prognosis Total Time: 35 min
[2016-07-10] MEDS: FOLIC ACID 1 MG, THIAMINE 100 MG, VITAMINS, MULTIPLE 10 ML in NS 1,000 ML IV SCH ×4 (22:38)
[2016-07-11] MEDS: LORAZEPAM 2 MG/ML VIAL IV SCH ×4 (01:03→17:24)
[2016-07-11] MEDS: Levofloxacin 500 mg/100 ml D5W 500 MG/100 ML RTU IV SCH (01:06)
[2016-07-11] MEDS ORDERED: [UNRECOGNIZED DRUG - OTHER] IV ONE (05:00)
[2016-07-11] MEDS ORDERED: NS IV ONE (05:00)
[2016-07-11 05:28] LABS: LEUKOCYTES/URINE TRACE (NEGATIVE); NITRITE/URINE NEG (NEGATIVE); RBC/URINE 0-2 (0-2); URINE OCCULT BLOOD NEG (NEG/TRACE); WBC/URINE 0-2 (0-2)
[2016-07-11 05:49] LABS: BLOOD UREA NITROGEN 6 MG/DL (9-20); CALCIUM 8.8 MG/DL (8.4-10.2); CALCULATED OSMOLALITY 255 MOs/Kg (270-290); CHLORIDE 103 mEq/L (98-107); GLUCOSE 78 MG/DL (70-99); SODIUM LEVEL 134 mEq/L (137-146)
[2016-07-11 05:56] LABS: MPV 11.4 fL (7.4-10.4)
[2016-07-11] MEDS: MORPHINE 2 MG/ML INJECTION IV PRN ×2 (06:09→20:05)
[2016-07-11] MEDS: Metronidazole 500 mg/100 ml 500 MG/100 ML RTU IV SCH ×3 (07:04→23:20)
[2016-07-11] MEDS: PANTOPRAZOLE 40 MG VIAL IV SCH (09:25)
[2016-07-11] MEDS: THIAMINE 100 MG TAB PO SCH (11:36)
[2016-07-11] MEDS: VITAMINS,PRENATAL TABLET PO SCH (11:36)
[2016-07-11] MEDS: NS 1,000 ML IV SCH ×3 (11:39→23:20)
[2016-07-11] MEDS: PANTOPRAZOLE SODIUM 40 MG in NS 100 ML IV SCH ×2 (14:51→19:27)
[2016-07-11] MEDS ORDERED: PANTOPRAZOLE 40 MG VIAL IV ONE ×2 (15:00)
--- NOTE | 2016-07-11 15:14 | GENMEDPROG ---
Chief Complaint: Persistent abdominal pain, GI bleed, pancreatitis, ETOH abuse, drug abuse Subjective Note: Hx of polysubstance abuse, ETOH abuse: reminded patient that these were major contributors to his problems. Advised complete cessation of use of illegal substances and all tobacco products. Currently: Reports: Tobacco Use/Hx, Alcohol Hx, Reflux Sx, Abdominal Pain. Denies: Diarrhea, Nausea and Vomiting - Physical Examination Vital Signs and I&O: Last Vital Signs Temp 98.4 F 07/11/16 13:47 Pulse 95 07/11/16 13:47 Resp 20 07/11/16 13:47 BP 130/63 07/11/16 13:47 Pulse Ox 99 07/11/16 13:47 Oxygen Pulse Oxygen Saturation 99 O2 Device Room Air Oxygen Flow Rate Fraction of Inspired Oxygen ( FIO2) Intake & Output 07/08/16 07/09/16 07/10/16 07/11/16 23:59 23:59 23:59 23:59 Intake Total 1000 2908 3097 921 Output Total 1375 3200 2500 Balance 1000 1533 103 -1579 Patient's weight 83.489 kg 83.716 kg 82.696 kg 81.675 kg General: Alert, Oriented x3, Cooperative, No acute distress HEENT: Normal, PERRLA, EOMI, Anicteric Sclera, Pallor Neck: Full range of motion, Normal Trachea alignment, Normal inspection, No Masses palpable Lymphatics: Normal Respiratory: Normal - CTA Cardiovascular: Regular rate and rhythm, Normal S1, Normal S2 GI: Normal bowel sounds (still present , but diminished,), Soft, No masses, Tenderness (mild, diffuse). negative: Mass, Hernia, Rebound, Guarding Extremities/Musculoskeletal: Normal pulses, FROM. negative: Swelling, Edema Skin: Warm,Dry and Intact Neurological: Normal speech, Strength at 5/5 X4 ext, Normal tone, Cranial nerves 3-12 NL Psych/Mental Status: Normal Affect, Cooperative Lab/DI/Studies Reviewed: Laboratory Tests 07/11/16 07/11/16 05:05 05:05 WBC 20.6 H Hgb 14.3 Hct 42.3 Plt Count 115 L Sodium 134 L Potassium 3.9 Chloride 103 Carbon Dioxide 19 L Anion Gap 16 BUN 6 L Creatinine 0.80 Estimated GFR (MDRD) > 60 Glucose 78 Calculated Osmolality 255 L Calcium 8.8 Lipase 115 - Assessment (1) GIB (gastrointestinal bleeding) Acute K92.2 - GASTROINTESTINAL HEMORRHAGE, UNSPECIFIED Qualifiers: GI bleed type/associated pathology: unspecified gastrointestinal hemorrhage type Qualified Code(s): K92.2 - Gastrointestinal hemorrhage, unspecified Comment/Plan: Currently not anemic, but he does give a history of recent dark tarry stools and coffee-ground emesis, with some bright red blood reported earlier on as well. As such, will start PPI IV infusion. GI consultation w/ Dr. Alanis for possible endoscopy. He has never had EGD or colonoscopy in the past. Also surgical evaluation due to guarding and possible perforated ulcer. Continue conservative measures for now. (2) Pancreatitis Acute K85.90 - ACUTE PANCREATITIS WITHOUT NECROSIS OR INFECTION, UNSP Qualifiers: Chronicity: acute Pancreatitis type: alcohol induced Acute pancreatitis complication: no infection or necrosis Qualified Code(s): K85.20 - Alcohol induced acute pancreatitis without necrosis or infection Comment/Plan: Pancreatitis resolving, but abdominal pain persists: probably gastritis related to heavy alcohol abuse. Keep strictly NPO, copious IV fluids. Control with IV morphine p.r.n.. (3) ETOH abuse Chronic F10.10 - ALCOHOL ABUSE, UNCOMPLICATED Comment/Plan: Patient and his family admits that he is a daily heavy drinker. I strongly advised to quit alcohol, he says that he will quit completely. Given his history, the fact that his last drink was 3 nights ago, he is certainly at high risk for alcohol withdrawal. As such, I have ordered CIWA checks and Ativan per the detox protocol. Also an antibiotic has been ordered. (4) Abdominal pain Acute R10.9 - UNSPECIFIED ABDOMINAL PAIN Comment/Plan: possibly some alcoholic gastritis, vs peptic ulcer disease- continue IV Protonix and consult GI, surgery (5) Drug abuse Chronic F19.10 - OTHER PSYCHOACTIVE SUBSTANCE ABUSE, UNCOMPLICATED Comment/ Plan: Noted opiates, methamphetamines, & cocaine on urine drug screen on admission.
--- NOTE | 2016-07-11 15:18 | PCM.SURGCO ---
Consultation Date: 07/11/16 Requesting Physician: Monica Sol Security Director: Trey Collier Consult Reason: Abdominal Pain - History of Present Illness 36 YO male with recent history of abdominal pain. He also has a history of substance abuse (cocaine, alcohol). It was thought he had pancreatitis. He currently states that he is not having any abdominal pain. He says that initially the pain was constant. It was sudden in onset but no causative factors had been noted. Now he says that the pain is intrmittent and lasts for a few minutes. The pain does not seem to radiate. No alleviating actors have been noted. He had a CT scan that showed inflammatory changes around 3rd / 4th portion of duodenum with associated fluid. No free air, no abscess. Chief Complaint: Abdominal pain - Past Medical and Surgical History Cardiac History: Reports: No Significant History. Denies: Atrial Fibrillation, Hypertension, Congestive Heart Failure Respiratory History: Reports: No Significant History. Denies: COPD, Cough GI/ History: Reports: No Significant History. Denies: Renal Failure Systemic History: Reports: No Significant History Musculoskeletal History: Reports: No Significant History Psychological History: Reports: No Significant History, Alcoholism (12-24 beers per day). Denies: Depression Neurological History: Reports: No Significant History Past Surgical History: Reports: No Significant History Allergies acetaminophen [From Excedrin Migraine] Allergy (Verified 07/08/16 17:41) Rash-Generalized aspirin [From Excedrin Migraine] Allergy (Verified 07/08/16 17:41) Rash-Generalized caffeine [From Excedrin Migraine] Allergy (Verified 07/08/16 17:41) Rash-Generalized Home Medications Ibuprofen Tablet [Advil] 200 mg PO .ONCE 07/08/16 - Social History Smoking Status: Heavy tobacco smoker (5 or more cigarettes/day or daily pipe/ cigar) Social History: Reports: Alcohol Use (12-24 beers per day), Cocaine Use (Every Friday over the last 4-5 years). Denies: Marijuana Use - Family History Reports: No Significant History - Review of Systems Constitutional: negative: Chills, Fever, Diaphoresis Eyes: Blurred Vision. negative: Pain, Photophobia Ears: negative: Drainage, Hearing Loss, Pain, Tinnitus Nose: negative: Abrasion, Deformity, Ecchymosis Mouth: negative: Denture Pain, Tooth Pain Throat/Neck: No Symptoms Reported Respiratory: negative: Cough, Shortness of Breath, Wheezing Cardiovascular: negative: Chest Pain, Orthopnea, Palpitations Gastrointestinal: Nausea, Abdominal Pain. negative: Melena, Hematochezia Genitourinary: negative: Dysuria, Hematuria Neurological: negative: Headache, Seizure Musculoskeletal:: negative: Muscle Pain Integumentary: negative: Bruising, Itching - Physical Exam Vital Signs: Initial Vitals Temperature 99.0 F 07/08/16 15:49 Pulse Rate 72 07/08/16 15:49 Respiratory Rate 18 07/08/16 15:49 Blood Pressure 143/84 07/08/16 15:49 Pulse Oxygen Saturation 97 07/08/16 15:49 Constitutional: No apparent distress, Alert. negative: Agitated, Confused Oriented to: Time - HEENT Head: negative: Deformity, Laceration Eye: negative: Edema, Scleral Icterus Oropharynx: Tonsillar Hypertrophy. negative: Drooling, Membranes Dry Tympanic Membrane: Immobile Respiratory: Normal - CTA. negative: Rales, Rhonchi, Wheezes Cardiovascular: Normal. negative: Bradycardia, Tachycardia, Irregular - GI Auscultation: Decreased Palpation: Normal, Enlarged liver. negative: Enlarged spleen, Fluid Wave Tenderness: Non tender. negative: Guarding Pérez's Sign: Negative - Musculoskeletal Back: Normal. negative: Laceration, CVA Tenderness Extremities: negative: Calf Tenderness, Clubbing, Cyanosis, Edema - Integumentary Skin: Warm, Dry. negative: Diaphoretic, Pale Lymphatics: negative: Adenopathy, Inguinal Erythema - Neurologic Memory Impaired: Normal Motor Function: Normal Cranial Nerve: Normal (CN II-XII intact sensation, strength 5/5) Thought: Coherent. negative: Delusions - Lab Results 07/11/16 05:05 07/11/16 05:05 - Assessment/Plan (1) Abdominal pain R10.9 - UNSPECIFIED ABDOMINAL PAIN Acute Present on Admission: Yes (2) Drug abuse F19.10 - OTHER PSYCHOACTIVE SUBSTANCE ABUSE, UNCOMPLICATED Chronic Present on Admission: Yes (3) ETOH abuse F10.10 - ALCOHOL ABUSE, UNCOMPLICATED Chronic Present on Admission: Yes (4) GIB (gastrointestinal bleeding) K92.2 - GASTROINTESTINAL HEMORRHAGE, UNSPECIFIED Acute unspecified gastrointestinal hemorrhage type K92.2 - Gastrointestinal hemorrhage, unspecified (5) Pancreatitis K85.90 - ACUTE PANCREATITIS WITHOUT NECROSIS OR INFECTION, UNSP Acute acute alcohol induced no infection or necrosis K85.20 - Alcohol induced acute pancreatitis without necrosis or infection Plan: Patient with abdominal pain which seems to be resolving. His WBC remains elevated which would be consistent with CT findings. Will need to repeat CT To see if this is improving. If better would consider continuing current antibiotics and within this cusp further with GI to see if EGD would be warranted. If not improving, may need exploratory surgery.
[2016-07-11] MEDS ORDERED: DIATRIZOATE MEGLMINE/SODIUM 30 ML BOTTLE PO ONE (15:29)
[2016-07-11] MEDS ORDERED: Pharmacy Review for Metformin - IV Contrast Given SCH ×2 (16:00)
--- NOTE | 2016-07-11 17:29 | PCM.GIPROG ---
Progress Note (GI) Chief Complaint: He feels somewhat better today. Does not have any increased abdominal pain. He denies having any significant nausea or vomiting. - Physical Exam Vital Signs: Temperature: 98.4 F (07/11/16 13:47) HR: 95 (07/11/16 13:47) RR: 20 (07/11/16 13:47) BP: 130/63 (07/11/16 13:47) Pulse Ox: 99 (07/11/16 13:47) General: Alert, Oriented x3, Cooperative, No acute distress HEENT: Normal, Other (No Jaundice). negative: Pallor Cardiovascular: Normal S1, Normal S2, Other (No S3 or S4.). negative: No murmurs Gastrointestinal: Soft, Bowel Sounds (Absent), Tender, Other (No ascites.). negative: Hepatosplenomegaly Extremities: Normal pulses. negative: Swelling, Edema Skin: Warm,Dry and Intact Neurological: Normal speech, Other (No focal neurologic deficits.) Psych/Mental Status: Normal Affect, Cooperative Result Diagrams: 07/11/16 05:05 07/11/16 05:05 - Impression and Plan (1) Abdominal pain Acute R10.9 - UNSPECIFIED ABDOMINAL PAIN Present on Admission: Yes Comment: possibly some alcoholic gastritis. (2) Drug abuse Chronic F19.10 - OTHER PSYCHOACTIVE SUBSTANCE ABUSE, UNCOMPLICATED Present on Admission: Yes Comment: Noted opiates, methamphetamines, & cocaine on urine drug screen on admission. (3) Duodenitis Acute K29.80 - DUODENITIS WITHOUT BLEEDING Comment: Significant duodenal inflammation and some associated fluid seen on CT scan of the abdomen tonight. Possibly infectious duodenitis or related to duodenal ulceration. My suspicion is for duodenal ulceration given his history of dark tarry stools, as well as heavy drinking. Infectious duodenitis is a possibility, as such will start on empiric Levaquin ill fascial, consider GI consultation in the morning for possible endoscopy once he is stabilized. He is currently not anemic, but will keep an eye on the blood counts on a daily basis, or check blood count stat in case of any further bright red blood in emesis or stool. (4) ETOH abuse Chronic F10.10 - ALCOHOL ABUSE, UNCOMPLICATED Present on Admission: Yes Comment: Patient and his family admits that he is a daily heavy drinker. I strongly advised to quit alcohol, he says that he will quit completely. Given his history, the fact that his last drink was 3 nights ago, he is certainly at high risk for alcohol withdrawal. As such, I have ordered CIWA checks and Ativan per the detox protocol. Also an antibiotic has been ordered. (5) Pancreatitis Acute K85.90 - ACUTE PANCREATITIS WITHOUT NECROSIS OR INFECTION, UNSP acute alcohol induced no infection or necrosis K85.20 - Alcohol induced acute pancreatitis without necrosis or infection Comment: Pancreatitis resolving, but abdominal pain persists: probably gastritis related to heavy alcohol abuse. Keep strictly NPO, copious IV fluids. Control with IV morphine p.r.n.. Plan: 1. continue IV Protonix for now. 2. Continue antibiotics 3. Agree with Dr. Collier that he would need a repeat CT scan to see whether he is improving. Continue to monitor CBC. 4. His hemoglobin has been stable. He did not have any further bleeding. I do believe that the 3rd and 4th portion of duodenal will be beyond the reach of conventional EGD scope. If need be, we can perform enteroscopy using a pediatric colonoscope. Certainly, will have to wait for at least 2-3 weeks. 5. Will follow along.
[2016-07-11] MEDS ORDERED: IBUPROFEN INTRAVENOUS 400 MG in NS 100 ML IV PRN (23:45)
[2016-07-12] MEDS: PANTOPRAZOLE SODIUM 40 MG in NS 100 ML IV SCH ×7 (01:07→21:52)
[2016-07-12] MEDS: Levofloxacin 500 mg/100 ml D5W 500 MG/100 ML RTU IV SCH ×2 (02:31→23:54)
[2016-07-12] MEDS: NS 1,000 ML IV SCH ×2 (03:22→22:21)
[2016-07-12] MEDS: Metronidazole 500 mg/100 ml 500 MG/100 ML RTU IV SCH ×3 (05:53→21:21)
[2016-07-12] MEDS ORDERED: DIATRIZOATE MEGLMINE/SODIUM 30 ML BOTTLE PO ONE (07:00)
[2016-07-12 07:10] LABS: AUTOMATED BASOPHIL 0.1 % (0-2); AUTOMATED EOSINOPHIL 0.6 % (0-5); AUTOMATED LYMPH 9.8 % (17-44); AUTOMATED MONOCYTE 8.4 % (3-10); AUTOMATED NEUTROPHIL 81.1 % (45-76); MPV 10.8 fL (7.4-10.4)
[2016-07-12 07:27] LABS: BLOOD UREA NITROGEN 7 MG/DL (9-20); CALC CORRECTED 9.6 MG/DL (8.4-10.2); CALCIUM 8.9 MG/DL (8.4-10.2); CALCULATED OSMOLALITY 268 MOs/Kg (270-290); CHLORIDE 107 mEq/L (98-107); GLUCOSE 88 MG/DL (70-99); SODIUM LEVEL 141 mEq/L (137-146); TOTAL PROTEIN 6.4 G/DL (6.3-8.2)
--- NOTE | 2016-07-12 08:57 | DIRPT ---
CLINICAL DATA: Follow-up acute pancreatitis. Mid abdominal pain. EXAM: CT ABDOMEN AND PELVIS WITH CONTRAST TECHNIQUE: Multidetector CT imaging of the abdomen and pelvis was performed using the standard protocol following bolus administration of intravenous contrast. CONTRAST: 100 cc Isovue 370 IV. COMPARISON: 07/08/2016 CT abdomen/pelvis. FINDINGS: Lower chest: New trace layering right pleural effusion. Hepatobiliary: Diffuse hepatic steatosis. No liver mass. Normal gallbladder with no radiopaque cholelithiasis. No biliary ductal dilatation. Pancreas: There is peripancreatic fat stranding and fluid surrounding the pancreatic head and uncinate process of the pancreas, in keeping with acute pancreatitis. No main pancreatic duct dilation. No pancreatic mass. No regions of pancreatic non enhancement or pancreatic gas. There is a peripancreatic fluid collection arising from the level of the uncinate process of pancreas and extending into the right anterior paranephric retroperitoneal space, where it is largest and measures 9.0 x 2.9 cm (series 3/ image 50), increased from 6.4 x 1.8 cm. Spleen: Normal size. No mass. Adrenals/Urinary Tract: Normal adrenals. Duplicated right renal collecting system. No renal mass. Minimal fullness of the central right renal collecting system without overt right hydronephrosis. No left hydronephrosis. Normal bladder. Stomach/Bowel: Grossly normal stomach. Normal caliber small bowel with no small bowel wall thickening. Normal appendix. Normal large bowel with no diverticulosis, large bowel wall thickening or pericolonic fat stranding. Vascular/Lymphatic: Normal caliber abdominal aorta. Patent portal, splenic, hepatic and renal veins. No pathologically enlarged lymph nodes in the abdomen or pelvis. Reproductive: Normal prostate and seminal vesicles. Other: No pneumoperitoneum. New trace pelvic ascites. Musculoskeletal: No aggressive appearing focal osseous lesions. There are a few subcentimeter stable sclerotic lesions in the bilateral pelvic girdle, nonspecific, likely benign bone islands. IMPRESSION: 1. Enlarging peripancreatic fluid collection predominantly located in the right anterior paranephric retroperitoneal space, which could represent a developing pancreatic pseudocyst. No additional complication from pancreatitis. Continued short-term CT abdomen/pelvis surveillance is warranted for this fluid collection if not drained. 2. New trace layering right pleural effusion and trace pelvic ascites. 3. Diffuse hepatic steatosis. Electronically Signed By: Moisés Solis M.D. On: 07/12/2016 08:55
--- NOTE | 2016-07-12 09:43 | PCM.SURGRO ---
- Subjective Patient: Reports: Feels better - Objective / Physical Exam Vital Signs: Temperature: 97.6 F (07/12/16 05:15) HR: 77 (07/12/16 05:15)RR: 18 (07/12/16 05: 15) BP: 118/73 (07/12/16 05:15)Pulse Ox: 99 (07/12/16 05:15) General: Alert, Oriented x3, Cooperative, No acute distress HEENT: Normal, Anicteric Sclera Respiratory: Normal - CTA. negative: Rales, Rhonchi Cardiovascular: Regular rate and rhythm, No Gallops,Rubs/Murmurs Gastrointestinal: Soft. negative: Distended, Tender Back: negative: Ecchymosis, CVA Tenderness Extremities: negative: Edema, Clubbing, Cyanosis Psych/Mental Status: Appropriate, Normal Affect, Cooperative. negative: Anxious Skin: Warm,Dry and Intact, No rashes, No breakdown Laboratory/Diagnostics Reviewed: 07/12/16 06:35 07/12/16 06:35 Laboratory Results - last 24 hr 07/12/16 07/12/16 06:35 06:35 WBC 16.5 H RBC 4.48 L Hgb 14.1 Hct 41.1 L MCV 92 MCH 31.5 MCHC 34.3 RDW 13.2 Plt Count 149 MPV 10.8 H Neut % (Auto) 81.1 H Lymph % (Auto) 9.8 L Schuyler % (Auto) 8.4 Eos % (Auto) 0.6 Baso % (Auto) 0.1 Absolute Neuts (auto) 13.37 H Absolute Lymphs (auto) 1.49 Sodium 141 D Potassium 3.6 Chloride 107 Carbon Dioxide 19 L Anion Gap 19 H BUN 7 L Creatinine 0.70 Estimated GFR (MDRD) > 60 Glucose 88 Calculated Osmolality 268 L Calcium 8.9 Corrected Calcium 9.6 Total Bilirubin 1.2 AST 40 ALT 49 Alkaline Phosphatase 88 Total Protein 6.4 Albumin 3.3 L Lipase 300 - Assessment and Plan (1) Pancreatitis Acute K85.90 - ACUTE PANCREATITIS WITHOUT NECROSIS OR INFECTION, UNSP acute alcohol induced no infection or necrosis K85.20 - Alcohol induced acute pancreatitis without necrosis or infection (2) Abdominal pain Resolved R10.9 - UNSPECIFIED ABDOMINAL PAIN Present on Admission: Yes (3) GIB (gastrointestinal bleeding) Acute K92.2 - GASTROINTESTINAL HEMORRHAGE, UNSPECIFIED unspecified gastrointestinal hemorrhage type K92.2 - Gastrointestinal hemorrhage, unspecified (4) ETOH abuse Chronic F10.10 - ALCOHOL ABUSE, UNCOMPLICATED Present on Admission: Yes (5) Drug abuse Chronic F19.10 - OTHER PSYCHOACTIVE SUBSTANCE ABUSE, UNCOMPLICATED Present on Admission: Yes Plan: Today's CT showed persistent fluid collection. No extravasation of contrast noted. No evidence of perforation or abscess. Patient is now without pain. Will try liquids and see how he tolerates this. Will give some bicarb IV. No need for surgical intervention at this time. Will need to continue with antibiotics for the next week then have repeat imaging in 2-3 weeks.
[2016-07-12] MEDS: [UNRECOGNIZED DRUG - MIXTURE] IV SCH ×3 (10:21→19:49)
[2016-07-12] MEDS: VITAMINS,PRENATAL TABLET PO SCH (11:08)
[2016-07-12] MEDS: THIAMINE 100 MG TAB PO SCH (11:08)
[2016-07-12] MEDS: MORPHINE 2 MG/ML INJECTION IV PRN ×2 (13:58→19:49)
--- NOTE | 2016-07-12 14:48 | PCM.GIPROG ---
Progress Note (GI) Chief Complaint: The abdominal pain is better since admission. Patient was sleeping and hence the examination was to some extent limited. Repeat CT scan was reviewed - Physical Exam Vital Signs: Temperature: 98.2 F (07/12/16 13:24) HR: 92 (07/12/16 13:24) RR: 20 (07/12/16 13:24) BP: 127/63 (07/12/16 13:24) Pulse Ox: 97 (07/12/16 13:24) General: No acute distress HEENT: Normal, Other (No Jaundice). negative: Pallor Cardiovascular: Normal S1, Normal S2, Other (No S3 or S4.). negative: No murmurs Gastrointestinal: Soft, Bowel Sounds (Normal), Tender, Other (No ascites.). negative: Hepatosplenomegaly Extremities: Normal pulses. negative: Swelling, Edema Skin: Warm,Dry and Intact Neurological: Normal speech, Other (No focal neurologic deficits.) Psych/Mental Status: Normal Affect, Cooperative Result Diagrams: 07/12/16 06:35 07/12/16 06:35 Additional Lab/DI Findings: EXAM: CT ABDOMEN AND PELVIS WITH CONTRAST TECHNIQUE: Multidetector CT imaging of the abdomen and pelvis was performed using the standard protocol following bolus administration of intravenous contrast. CONTRAST: 100 cc Isovue 370 IV. COMPARISON: 07/08/2016 CT abdomen/pelvis. FINDINGS: Lower chest: New trace layering right pleural effusion. Hepatobiliary: Diffuse hepatic steatosis. No liver mass. Normal gallbladder with no radiopaque cholelithiasis. No biliary ductal dilatation. Pancreas: There is peripancreatic fat stranding and fluid surrounding the pancreatic head and uncinate process of the pancreas, in keeping with acute pancreatitis. No main pancreatic duct dilation. No pancreatic mass. No regions of pancreatic non enhancement or pancreatic gas. There is a peripancreatic fluid collection arising from the level of the uncinate process of pancreas and extending into the right anterior paranephric retroperitoneal space, where it is largest and measures 9.0 x 2.9 cm (series 3/ image 50), increased from 6.4 x 1.8 cm. Spleen: Normal size. No mass. Adrenals/Urinary Tract: Normal adrenals. Duplicated right renal collecting system. No renal mass. Minimal fullness of the central right renal collecting system without overt right hydronephrosis. No left hydronephrosis. Normal bladder. Stomach/Bowel: Grossly normal stomach. Normal caliber small bowel with no small bowel wall thickening. Normal appendix. Normal large bowel with no diverticulosis, large bowel wall thickening or pericolonic fat stranding. Vascular/Lymphatic: Normal caliber abdominal aorta. Patent portal, splenic, hepatic and renal veins. No pathologically enlarged lymph nodes in the abdomen or pelvis. Reproductive: Normal prostate and seminal vesicles. Other: No pneumoperitoneum. New trace pelvic ascites. Musculoskeletal: No aggressive appearing focal osseous lesions. There are a few subcentimeter stable sclerotic lesions in the bilateral pelvic girdle, nonspecific, likely benign bone islands. IMPRESSION: 1. Enlarging peripancreatic fluid collection predominantly located in the right anterior paranephric retroperitoneal space, which could represent a developing pancreatic pseudocyst. No additional complication from pancreatitis. Continued short-term CT abdomen/pelvis surveillance is warranted for this fluid collection if not drained. 2. New trace layering right pleural effusion and trace pelvic ascites. - Impression and Plan (1) Pancreatitis Acute K85.90 - ACUTE PANCREATITIS WITHOUT NECROSIS OR INFECTION, UNSP acute alcohol induced no infection or necrosis K85.20 - Alcohol induced acute pancreatitis without necrosis or infection Comment: Pancreatitis resolving, but abdominal pain persists: probably gastritis related to heavy alcohol abuse. Keep strictly NPO, copious IV fluids. Control with IV morphine p.r.n.. (2) Abdominal pain Resolved R10.9 - UNSPECIFIED ABDOMINAL PAIN Present on Admission: Yes Comment: possibly some alcoholic gastritis, vs peptic ulcer disease- continue IV Protonix and consult GI, surgery (3) Drug abuse Chronic F19.10 - OTHER PSYCHOACTIVE SUBSTANCE ABUSE, UNCOMPLICATED Present on Admission: Yes Comment: Noted opiates, methamphetamines, & cocaine on urine drug screen on admission. (4) Duodenitis Acute K29.80 - DUODENITIS WITHOUT BLEEDING Comment: Significant duodenal inflammation and some associated fluid seen on CT scan of the abdomen tonight. Possibly infectious duodenitis or related to duodenal ulceration. My suspicion is for duodenal ulceration given his history of dark tarry stools, as well as heavy drinking. Infectious duodenitis is a possibility, as such will start on empiric Levaquin ill fascial, consider GI consultation in the morning for possible endoscopy once he is stabilized. He is currently not anemic, but will keep an eye on the blood counts on a daily basis, or check blood count stat in case of any further bright red blood in emesis or stool. (5) ETOH abuse Chronic F10.10 - ALCOHOL ABUSE, UNCOMPLICATED Present on Admission: Yes Comment: Patient and his family admits that he is a daily heavy drinker. I strongly advised to quit alcohol, he says that he will quit completely. Given his history, the fact that his last drink was 3 nights ago, he is certainly at high risk for alcohol withdrawal. As such, I have ordered CIWA checks and Ativan per the detox protocol. Also an antibiotic has been ordered. Plan: 1. continue supportive treatment 2. Agree with Dr. Collier that he would require repeat CT scan of the abdomen pelvis in 2-3 weeks. At the present time there is no indication for any surgical resection unless there is infection. He seems to have very severe pancreatitis with extensive pseudocyst formation more apparrent on the CT scan performed today. He is at a very high risk for complications including pseudocyst formation which I believe would be inevitable 3. Continue broad-spectrum antibiotics 4. Stop all alcohol and cocaine use 5. Please call if with any problems.
--- NOTE | 2016-07-12 17:23 | GENMEDPROG ---
Chief Complaint: Pancreatitis with fluid collection, alcohol abuse Subjective Note: Patient states he is feeling somewhat better. He has minimal abdominal pain. He states he is eating. He has ambulated a little bit in the halls. Current Medication List: Reviewed Currently: Reports: Tobacco Use/Hx, Alcohol Hx, Reflux Sx, Abdominal Pain ( Improved), Ambulating. Denies: Cough, SOB, Diarrhea, Nausea and Vomiting DVT Prophylaxis: Yes - Physical Examination Vital Signs and I&O: Last Vital Signs Temp 98.2 F 07/12/16 13:24 Pulse 92 07/12/16 13:24 Resp 20 07/12/16 13:24 BP 127/63 07/12/16 13:24 Pulse Ox 97 07/12/16 13:24 Oxygen Pulse Oxygen Saturation 97 O2 Device Room Air Oxygen Flow Rate Fraction of Inspired Oxygen ( FIO2) Intake & Output 07/09/16 07/10/16 07/11/16 07/12/16 23:59 23:59 23:59 23:59 Intake Total 2908 3097 1672 3911 Output Total 1375 3200 3300 1775 Balance 1533 -103 -1628 2136 Patient's weight 83.716 kg 82.696 kg 81.675 kg 81.363 kg General: Alert, Cooperative, No acute distress HEENT: Normal, Anicteric Sclera, Mucous membr. moist/pink Neck: Normal inspection Lymphatics: Normal Respiratory: Normal - CTA Cardiovascular: Regular rate and rhythm, No Gallops,Rubs/Murmurs. negative: LE Edema GI: Normal bowel sounds, Soft, Other (Minimally tender in the periumbilical area but no rebound) Extremities/Musculoskeletal: Normal pulses. negative: Swelling, Edema Skin: Warm,Dry and Intact Neurological: Normal speech Psych/Mental Status: Appropriate, Cooperative Lab/DI/Studies Reviewed: 07/12/16 06:35 07/12/16 06:35 - Assessment (1) GIB (gastrointestinal bleeding) Acute K92.2 - GASTROINTESTINAL HEMORRHAGE, UNSPECIFIED Qualifiers: GI bleed type/associated pathology: unspecified gastrointestinal hemorrhage type Qualified Code(s): K92.2 - Gastrointestinal hemorrhage, unspecified Comment/Plan: Stable hemoglobin. Appreciate input of Gastroenterology. He is still on PPI (2) Pancreatitis Acute K85.90 - ACUTE PANCREATITIS WITHOUT NECROSIS OR INFECTION, UNSP Qualifiers: Chronicity: acute Pancreatitis type: alcohol induced Acute pancreatitis complication: no infection or necrosis Qualified Code(s): K85.20 - Alcohol induced acute pancreatitis without necrosis or infection Comment/Plan: Less pain. Tolerating a diet. Given his fluid collection on CT he needs another CT in 2 weeks. Will slowly try to withdrawal pain medication as he tolerates it. (3) ETOH abuse Chronic F10.10 - ALCOHOL ABUSE, UNCOMPLICATED Comment/Plan: Patient and his family admits that he is a daily heavy drinker. I strongly advised to quit alcohol, he says that he will quit completely. Given his history, the fact that his last drink was 3 nights ago, he is certainly at high risk for alcohol withdrawal. As such, I have ordered CIWA checks and Ativan per the detox protocol. Also an antibiotic has been ordered. (4) Abdominal pain Resolved R10.9 - UNSPECIFIED ABDOMINAL PAIN Comment/Plan: possibly some alcoholic gastritis, vs peptic ulcer disease- continue IV Protonix and consult GI, surgery (5) Duodenitis Ruled-out K29.80 - DUODENITIS WITHOUT BLEEDING Comment/Plan: Significant duodenal inflammation and some associated fluid seen on CT scan of the abdomen tonight. Possibly infectious duodenitis or related to duodenal ulceration. My suspicion is for duodenal ulceration given his history of dark tarry stools, as well as heavy drinking. Infectious duodenitis is a possibility, as such will start on empiric Levaquin ill fascial, consider GI consultation in the morning for possible endoscopy once he is stabilized. He is currently not anemic, but will keep an eye on the blood counts on a daily basis, or check blood count stat in case of any further bright red blood in emesis or stool. Case Care Discussed with: Patient, Consultants Education/Counseling Given To: Patient Education/Counseling Given Regarding: Diagnosis, Treatment Total Time: 30 minutes Critical Care: No Code: 11604 (12+)
[2016-07-13] MEDS: PANTOPRAZOLE SODIUM 40 MG in NS 100 ML IV SCH ×7 (02:26→23:01)
[2016-07-13] MEDS: [UNRECOGNIZED DRUG - MIXTURE] IV SCH ×3 (02:29→07:36)
[2016-07-13] MEDS: Metronidazole 500 mg/100 ml 500 MG/100 ML RTU IV SCH ×3 (05:22→23:00)
[2016-07-13 06:26] LABS: AUTOMATED BASOPHIL 0.8 % (0-2); AUTOMATED EOSINOPHIL 0.5 % (0-5); AUTOMATED LYMPH 12.6 % (17-44); AUTOMATED MONOCYTE 10.6 % (3-10); AUTOMATED NEUTROPHIL 75.5 % (45-76); MPV 10.5 fL (7.4-10.4)
[2016-07-13 07:04] LABS: BLOOD UREA NITROGEN 4 MG/DL (9-20); CALC CORRECTED 9.6 MG/DL (8.4-10.2); CALCIUM 8.6 MG/DL (8.4-10.2); CALCULATED OSMOLALITY 267 MOs/Kg (270-290); CHLORIDE 105 mEq/L (98-107); GLUCOSE 113 MG/DL (70-99); SODIUM LEVEL 140 mEq/L (137-146); TOTAL PROTEIN 6.1 G/DL (6.3-8.2)
[2016-07-13] MEDS: MORPHINE 2 MG/ML INJECTION IV PRN ×2 (09:53→14:29)
[2016-07-13] MEDS: VITAMINS,PRENATAL TABLET PO SCH (11:14)
[2016-07-13] MEDS: THIAMINE 100 MG TAB PO SCH (11:14)
--- NOTE | 2016-07-13 14:37 | GENMEDPROG ---
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 He is tolerating full liquids. He states he feels hungry now. He does note after he eats he has some mild abdominal pain but no vomiting and no further diarrhea. He denies any fever chills. He is asking about any restrictions when he returned to work. I explained that initially he might need to be off work until his pancreatitis is improved to the point that he can eat a normal diet. Currently: Reports: Tobacco Use/Hx, Alcohol Hx, Abdominal Pain (Improved), Ambulating. Denies: Cough, SOB, Diarrhea, Nausea and Vomiting, Reflux Sx DVT Prophylaxis: Yes - Physical Examination Vital Signs and I&O: Last Vital Signs Temp 98.3 F 07/13/16 09:05 Pulse 86 07/13/16 09:05 Resp 16 07/13/16 09:05 BP 131/68 07/13/16 09:05 Pulse Ox 98 07/13/16 09:05 Oxygen Pulse Oxygen Saturation 98 O2 Device Room Air Oxygen Flow Rate Fraction of Inspired Oxygen ( FIO2) Intake & Output 07/10/16 07/11/16 07/12/16 07/13/16 23:59 23:59 23:59 23:59 Intake Total 3093 1672 4404 3295 Output Total 3200 3300 3425 1250 Balance -103 -8889 924 2260 Patient's weight 82.696 kg 81.675 kg 81.363 kg 81.42 kg General: Alert, Cooperative, No acute distress HEENT: Normal, Anicteric Sclera, Mucous membr. moist/pink Neck: Normal inspection Lymphatics: Normal Respiratory: Normal - CTA Cardiovascular: Regular rate and rhythm, No Gallops,Rubs/Murmurs. negative: LE Edema GI: Normal bowel sounds, Soft, Other (Minimally tender in the periumbilical area but no rebound) Extremities/Musculoskeletal: Normal pulses. negative: Swelling, Edema Skin: Warm,Dry and Intact Neurological: Normal speech Psych/Mental Status: Appropriate, Cooperative Lab/DI/Studies Reviewed: 07/13/16 05:59 07/13/16 05:59 Intake & Output 07/10/16 07/11/16 07/12/16 07/13/16 23:59 23:59 23:59 23:59 Intake Total 3097 1672 4404 3295 Output Total 3200 3300 3425 1250 Balance -103 -[id number] 825 5545 Patient's weight 82.696 kg 81.675 kg 81.363 kg 81.42 kg - Assessment (1) GIB (gastrointestinal bleeding) Acute K92.2 - GASTROINTESTINAL HEMORRHAGE, UNSPECIFIED Qualifiers: GI bleed type/associated pathology: unspecified gastrointestinal hemorrhage type Qualified Code(s): K92.2 - Gastrointestinal hemorrhage, unspecified Comment/Plan: Stable hemoglobin. Appreciate input of Gastroenterology. He is still on PPI (2) Pancreatitis Acute K85.90 - ACUTE PANCREATITIS WITHOUT NECROSIS OR INFECTION, UNSP Qualifiers: Chronicity: acute Pancreatitis type: alcohol induced Acute pancreatitis complication: no infection or necrosis Qualified Code(s): K85.20 - Alcohol induced acute pancreatitis without necrosis or infection Comment/Plan: Had pain with ambulation that is related to the fluid. Will add some bananas or canned fruit to his full liquids and see how he tolerates it. Will discontinue the bicarb and change his IV fluids to half-normal saline with 20 mEq of KCl. Encouraged ambulation. (3) ETOH abuse Chronic F10.10 - ALCOHOL ABUSE, UNCOMPLICATED Comment/Plan: The patient has admitted to other physicians that he is a daily heavy drinker. He did not show any signs of withdrawal. He is on Ativan taper. He states he can abstain from alcohol but would not commit to any specifics. Of note the patient's mother was in the room at the time and may have hindered the conversation. (4) Abdominal pain Resolved R10.9 - UNSPECIFIED ABDOMINAL PAIN Comment/Plan: Will continue IV Protonix to see until he takes solid food. He apparently has had some blood in the stools as well as some vomiting blood prior to this hospitalization. We have not seen any during this hospitalization. (5) Duodenitis Ruled-out K29.80 - DUODENITIS WITHOUT BLEEDING Comment/Plan: There was initial concern for a duodenitis but likely this is pancreatitis with a fluid collection. If the patient is compliant he will need close follow-up with GI. Case Care Discussed with: Patient, Family Education/Counseling Given To: Patient, Family Member Education/Counseling Given Regarding: Diagnosis, Treatment, Prognosis Critical Care: No Code: 18874 (12+)
[2016-07-13] MEDS: KCL 20 MEQ IV SCH (16:31)
[2016-07-13] MEDS: [UNRECOGNIZED DRUG - OTHER] IV SCH (16:31)
[2016-07-14] MEDS: MORPHINE 2 MG/ML INJECTION IV PRN ×2 (01:06→11:19)
[2016-07-14] MEDS: Levofloxacin 500 mg/100 ml D5W 500 MG/100 ML RTU IV SCH ×2 (01:07→23:41)
[2016-07-14] MEDS: [UNRECOGNIZED DRUG - OTHER] IV SCH ×5 (02:41→22:10)
[2016-07-14] MEDS: KCL 20 MEQ IV SCH ×5 (02:41→22:10)
[2016-07-14] MEDS: PANTOPRAZOLE SODIUM 40 MG in NS 100 ML IV SCH ×5 (04:22→22:36)
[2016-07-14] MEDS: Metronidazole 500 mg/100 ml 500 MG/100 ML RTU IV SCH ×3 (06:18→20:59)
[2016-07-14 07:51] LABS: BLOOD UREA NITROGEN 5 MG/DL (9-20); CALCULATED OSMOLALITY 268 MOs/Kg (270-290); CHLORIDE 106 mEq/L (98-107); GLUCOSE 94 MG/DL (70-99); SODIUM LEVEL 141 mEq/L (137-146)
--- NOTE | 2016-07-14 09:16 | GENMEDPROG ---
Subjective Note: Is still having right sided pain with ambulation but improved. Has tolerated full liquids. Ate an apple. Minimal pain. No vomiting or diarrhea. Currently: Reports: Tobacco Use/Hx, Alcohol Hx, Abdominal Pain (Improved), Ambulating. Denies: Cough, SOB, Diarrhea, Nausea and Vomiting, Reflux Sx DVT Prophylaxis: Yes - Physical Examination Vital Signs and I&O: Last Vital Signs Temp 98.5 F 07/14/16 05:41 Pulse 71 07/14/16 05:41 Resp 18 07/14/16 05:41 BP 116/67 07/14/16 05:41 Pulse Ox 98 07/14/16 05:41 Oxygen Pulse Oxygen Saturation 98 O2 Device Room Air Oxygen Flow Rate Fraction of Inspired Oxygen ( FIO2) Intake & Output 07/11/16 07/12/16 07/13/16 07/14/16 23:59 23:59 23:59 23:59 Intake Total 1672 4404 4798 1506 Output Total 3300 3425 2300 1375 Balance -6701 425 2298 131 Patient's weight 81.675 kg 81.363 kg 81.42 kg 80.966 kg General: Alert, Cooperative, No acute distress HEENT: Normal, Anicteric Sclera, Mucous membr. moist/pink Neck: Normal inspection Lymphatics: Normal Respiratory: Normal - CTA Cardiovascular: Regular rate and rhythm, No Gallops,Rubs/Murmurs. negative: LE Edema GI: Normal bowel sounds, Soft, Other (Minimally tender in the periumbilical area but no rebound) Extremities/Musculoskeletal: Normal pulses. negative: Swelling, Edema Skin: Warm,Dry and Intact Neurological: Normal speech Psych/Mental Status: Appropriate, Cooperative - Assessment (1) GIB (gastrointestinal bleeding) Resolved K92.2 - GASTROINTESTINAL HEMORRHAGE, UNSPECIFIED Qualifiers: GI bleed type/associated pathology: unspecified gastrointestinal hemorrhage type Qualified Code(s): K92.2 - Gastrointestinal hemorrhage, unspecified Comment/Plan: Continue PPI (2) Pancreatitis Resolved K85.90 - ACUTE PANCREATITIS WITHOUT NECROSIS OR INFECTION, UNSP Qualifiers: Chronicity: acute Pancreatitis type: alcohol induced Acute pancreatitis complication: no infection or necrosis Qualified Code(s): K85.20 - Alcohol induced acute pancreatitis without necrosis or infection Comment/Plan: Improved. Is ambulating. Is tolerating food. Continue to advance diet. may be able to be discharged sooon with GI followup (3) ETOH abuse Chronic F10.10 - ALCOHOL ABUSE, UNCOMPLICATED Comment/Plan: Ativan taper. No evidence of withdrawal. (4) Abdominal pain Resolved R10.9 - UNSPECIFIED ABDOMINAL PAIN Comment/Plan: Improving on PPI and liited diet. (5) Duodenitis Ruled-out K29.80 - DUODENITIS WITHOUT BLEEDING Comment/Plan: There was initial concern for a duodenitis but likely this is pancreatitis with a fluid collection. If the patient is compliant he will need close follow-up with GI. Case Care Discussed with: Patient, Family Education/Counseling Given To: Patient Total Time: 30 min Critical Care: No Couseling Time (>50% in counseling/coordination): No Code: 42064 (12+)
[2016-07-14] MEDS: THIAMINE 100 MG TAB PO SCH (11:19)
[2016-07-14] MEDS: VITAMINS,PRENATAL TABLET PO SCH (11:19)
[2016-07-15] MEDS: PANTOPRAZOLE SODIUM 40 MG in NS 100 ML IV SCH ×2 (03:31→08:44)
[2016-07-15] MEDS: Metronidazole 500 mg/100 ml 500 MG/100 ML RTU IV SCH ×2 (05:22→13:10)
[2016-07-15 06:09] VITALS: BMI 24.1
[2016-07-15] MEDS: [UNRECOGNIZED DRUG - OTHER] IV SCH (07:25)
[2016-07-15] MEDS: KCL 20 MEQ IV SCH (07:25)
[2016-07-15 07:54] LABS: MPV 10.3 fL (7.4-10.4)
[2016-07-15 08:27] LABS: BLOOD UREA NITROGEN 6 MG/DL (9-20); CALCIUM 9.5 MG/DL (8.4-10.2); CALCULATED OSMOLALITY 270 MOs/Kg (270-290); CHLORIDE 104 mEq/L (98-107); GLUCOSE 83 MG/DL (70-99); SODIUM LEVEL 142 mEq/L (137-146)
[2016-07-15] MEDS: THIAMINE 100 MG TAB PO SCH (11:34)
[2016-07-15] MEDS: VITAMINS,PRENATAL TABLET PO SCH (11:34)
[2016-07-15 14:26] VITALS: BP 128/60; PULSE 65; TEMP 98.5
--- NOTE | 2016-07-15 14:38 | PCM.DCS92 ---
- Final/Secondary Discharge Diagnosis (1) GIB (gastrointestinal bleeding) Resolved K92.2 - GASTROINTESTINAL HEMORRHAGE, UNSPECIFIED unspecified gastrointestinal hemorrhage type K92.2 - Gastrointestinal hemorrhage, unspecified Comment: Stable hemoglobin. Appreciate input of Gastroenterology. He is still on PPI (2) Pancreatitis Resolved K85.90 - ACUTE PANCREATITIS WITHOUT NECROSIS OR INFECTION, UNSP acute alcohol induced no infection or necrosis K85.20 - Alcohol induced acute pancreatitis without necrosis or infection Comment: Had pain with ambulation that is related to the fluid. Will add some bananas or canned fruit to his full liquids and see how he tolerates it. Will discontinue the bicarb and change his IV fluids to half-normal saline with 20 mEq of KCl. Encouraged ambulation. (3) ETOH abuse Chronic F10.10 - ALCOHOL ABUSE, UNCOMPLICATED Present on Admission: Yes Comment: The patient has admitted to other physicians that he is a daily heavy drinker. He did not show any signs of withdrawal. He is on Ativan taper. He states he can abstain from alcohol but would not commit to any specifics. Of note the patient's mother was in the room at the time and may have hindered the conversation. (4) Abdominal pain Resolved R10.9 - UNSPECIFIED ABDOMINAL PAIN Present on Admission: Yes Comment: Will continue IV Protonix to see until he takes solid food. He apparently has had some blood in the stools as well as some vomiting blood prior to this hospitalization. We have not seen any during this hospitalization. (5) Duodenitis Ruled-out K29.80 - DUODENITIS WITHOUT BLEEDING Comment: There was initial concern for a duodenitis but likely this is pancreatitis with a fluid collection. If the patient is compliant he will need close follow-up with GI. Discharge Disposition: Home Discharge Condition: Improved Cognitive Discharge Status: Unimpaired Fuctional Discharge Status: Independent Physician Follow up/Referrals: None,No Provider [Family Provider] - One Week New Prescriptions: Oxycodone HCl [Oxaydo] 5 mg PO Q4-6H PRN #30 tablet.orl PRN Reason: Abdominal Pain Vitamins, [ Vitamin] 1 tab PO DAILY@1200 #30 tablet Pantoprazole Sodium [Protonix] 40 mg PO DAILY #30 tablet Thiamine [Thiamine, Vitamin B-1] 100 mg PO DAILY@1200 #30 tablet Discharge Home Medication List Oxycodone HCl [Oxaydo] 5 mg PO Q4-6H PRN #30 tablet.orl 07/15/16 [Rx] Pantoprazole Sodium [Protonix] 40 mg PO DAILY #30 tablet 07/15/16 [Rx] Thiamine [Thiamine, Vitamin B-1] 100 mg PO DAILY@1200 #30 tablet 07/15/16 [Rx] Vitamins, [ Vitamin] 1 tab PO DAILY@1200 #30 tablet 07/15/16 [ Rx] New Discharge Medications (Rx) Oxycodone HCl [Oxaydo] 5 mg PO Q4-6H PRN #30 tablet.orl 07/15/16 [Rx] Pantoprazole Sodium [Protonix] 40 mg PO DAILY #30 tablet 07/15/16 [Rx] Thiamine [Thiamine, Vitamin B-1] 100 mg PO DAILY@1200 #30 tablet 07/15/16 [Rx] Vitamins, [ Vitamin] 1 tab PO DAILY@1200 #30 tablet 07/15/16 [ Rx] O2 Device: Room Air Additional Instructions: please schedule f/u appt with [employer] financial application developer [employer]. Please give return to work note for Friday Diet at Discharge: Regular, Hardy Activity: No Restrictions, As Tolerated Call Office For: Worsening Symptoms Discontinue use of:: Alcohol, All Illegal Substances, All Types of Tobacco - DC Summary Notes Hospital Course Note:: Discharge summary on patient named ROSELYN VELA REBOLLED admitted to [facility] on 07/08/16 by Dionicio Rios MD. Date of discharge is []. 36-year-old gentleman admitted to our facility with acute abdominal pain found to have acute pancreatitis with abscess. He had a severe case. He required significant amounts of IV fluids and pain medications. Over the ensuing days the patient slowly improved. Today he has tolerated a bland diet and is anxious for discharge home. Having been able to tolerate the diet and review of his laboratory studies also indicates that he is stable for discharge home. At this point patient has reached maximum benefit of hospitalization. He reports that he no longer is interested in drinking any alcohol or taking any illegal substances. He is concerned about recurrence of pancreatitis. I educated him regarding pancreatitis and its ability to reach recur. Patient will return to work on FridayJuly 22 or sooner if he is feeling up to it. At this point he has reached maximum benefit of hospitalization. He is stable for discharge home. Total Time: 45 min - Physical Exam Vital Signs: Last Vital Signs Temp 98.5 F 07/15/16 14:25 Pulse 65 07/15/16 14:25 Resp 19 07/15/16 14:25 BP 128/60 07/15/16 14:25 Pulse Ox 98 07/15/16 14:25 Oxygen Pulse Oxygen Saturation 98 O2 Device Room Air Oxygen Flow Rate Fraction of Inspired Oxygen ( FIO2) Constitutional: No apparent distress, Alert. negative: Agitated, Confused Oriented to: Time - HEENT Head: negative: Deformity, Laceration Eye: negative: Edema, Scleral Icterus Oropharynx: Tonsillar Hypertrophy. negative: Drooling, Membranes Dry Tympanic Membrane: Immobile Nose: negative: Abrasion, Deformity, Ecchymosis - Respiratory/Cardiovascular Respiratory: Normal - CTA - GI Auscultation: Decreased Palpation: Normal, Enlarged liver. negative: Enlarged spleen, Fluid Wave Tenderness: Non tender. negative: Guarding Pérez's Sign: Negative - Musculoskeletal Back: negative: Ecchymosis, CVA Tenderness - Integumentary Skin: Normal (Warm dry no rashes) Lymphatics: Normal - Neurologic Memory Impaired: Normal Motor Function: Normal (Motor 5/5 throughout.Normal tone, Pulses 2+ No cyanosis or edema, FROM) Cranial Nerve: Normal (CN II-XII intact sensation, strength 5/5) Cerebellar: Normal (Babinski: toes downgoing bilaterally. Intact Finger to nose. Sensory grossly intact to light touch. Intact rapid alternating movements bilaterally. No pronator drift.) Mood Description: Normal (Fully oriented. Normal and appropriate affect.) Thought: Coherent. negative: Delusions - Other Exam Other Exam Findings: Laboratory Results - last 24 hr 07/15/16 07/15/16 06:37 06:37 WBC 15.0 H RBC 4.68 L Hgb 14.7 Hct 42.5 MCV 91 MCH 31.4 MCHC 34.6 RDW 12.9 Plt Count 230 MPV 10.3 Sodium 142 Potassium 3.9 Chloride 104 Carbon Dioxide 24 Anion Gap 18 H BUN 6 L Creatinine 0.70 Estimated GFR (MDRD) > 60 Glucose 83 Calculated Osmolality 270 Calcium 9.5
[2016-07-15] MEDS ORDERED: PANTOPRAZOLE 40 MG TAB PO SCH (18:00)
== END 2016-07-15 15:32 | disposition home or self-care (01) | DRG 439 ==
LOC: ED 14:57 → MPS3 21:30
PROVIDERS: ADMIT Internal Medicine; ATTEND Hospitalist
DX: K85.20 Alcohol induced acute pancreatitis without necrosis or infection (principal); K92.0 Hematemesis; F10.10 Alcohol abuse, uncomplicated; Z88.8 Allergy status to other drugs, medicaments and biological substances; F17.210 Nicotine dependence, cigarettes, uncomplicated; F19.10 Other psychoactive substance abuse, uncomplicated; K29.20 Alcoholic gastritis without bleeding
CPT/HCPCS: 36415; 74177; 80048; 80053; 80307; 81001; 83690; 85007; 85025; 85027; 87040; 87086; 96361; 96374; 96375; 99284; 99406; A9153; A9698; J1170; J1741; J1956; J2060; J2270; J2405; J3411; J3490; J7030; J7040; J7050; J7070; S0164